=== PATIENT | female | born 1980 | race Caucasian/White ===

== ENCOUNTER 2020-08-15 12:22 | Emergency (ER) | payer BC ==
--- NOTE | 2020-08-15 13:26 | EDM.PDOC ---
ED HPI GENERAL MEDICAL PROBLEM - General Chief Complaint: Chest Pain Stated Complaint: HEADACHE/CHEST AND SHOULDER PAIN Time Seen by Provider: 08/15/20 12:32 Source of Information: Reports: Patient, RN Notes Reviewed History Limitations: Reports: No Limitations - History of Present Illness INITIAL COMMENTS - FREE TEXT/NARRATIVE: Patient is a 39-year-old female presenting to the emergency department with complaints of intermittent right upper chest pain radiating into her right shoulder with associated shortness of breath. Patient states that she had Covid in April and since that time she is had this pain intermittently, however it has now been present since Thursday and persists. Since Thursday, she has also been having intermittent nausea and vomiting, and headaches. She has a history of "tension migraines "which she states she had even prior to Covid. These headaches are manageable with Excedrin. She continues to have distorted taste and smell as well as fatigue. She denies any significant shortness of breath at rest, however states when the pain comes to her right chest and shoulder she does feel short of breath at that time. She denies any known fever but states she does feel chilled occasionally. She called her primary care provider, QASIM Cheng, and she recommended she come to the ER for evaluation. Right Chest Pain Score (Numeric/FACES): 6 - Related Data Allergies Allergy/AdvReac Type Severity Reaction Status Date / Time No Known Allergies Allergy Verified 08/15/20 12:35 Home Meds: Home Meds Levonorgestrel/Ethin.estradiol [Aviane-28 Tablet] 1 tab PO DAILY 08/15/20 [History] predniSONE [Prednisone] 20 mg PO ASDIRECTED #15 tablet 08/15/20 [Rx] Past Medical History - Past Health History Medical/Surgical History: Denies Medical/Surgical History - Infectious Disease History Infectious Disease History: Reports: Chicken Pox, Novel Coronavirus Social & Family History - Tobacco Use Tobacco Use Status *Q: Never Tobacco User Second Hand Smoke Exposure: No - Caffeine Use Caffeine Use: Reports: Coffee - Recreational Drug Use Recreational Drug Use: Yes Recreational Drug Type: Reports: Marijuana/Hashish ED ROS GENERAL - Review of Systems Review Of Systems: See Below Constitutional: Reports: Chills, Fatigue. Denies: Fever HEENT: Reports: Other (parasomnia) Respiratory: Reports: Shortness of Breath (intermittent). Denies: Cough Cardiovascular: Reports: Chest Pain. Denies: Dyspnea on Exertion, Lightheadedness Endocrine: Reports: No Symptoms GI/Abdominal: Reports: Nausea, Vomiting : Reports: No Symptoms Musculoskeletal: Reports: No Symptoms Skin: Reports: No Symptoms Neurological: Reports: Headache. Denies: Confusion, Dizziness Psychiatric: Reports: No Symptoms Hematologic/Lymphatic: Reports: No Symptoms Immunologic: Reports: No Symptoms ED EXAM, GENERAL - Physical Exam Exam: See Below Exam Limited By: No Limitations General Appearance: Alert, WD/WN, No Apparent Distress Respiratory/Chest: No Respiratory Distress, Lungs Clear, Normal Breath Sounds, No Accessory Muscle Use, Other (Tenderness to palpation of the right upper chest wall.) Cardiovascular: Normal Peripheral Pulses, Regular Rate, Rhythm, No Edema, No Gallop, No JVD, No Murmur, No Rub GI/Abdominal: Normal Bowel Sounds, Soft, Non-Tender, No Organomegaly, No Distention, No Abnormal Bruit, No Mass Neurological: Alert, Oriented, CN II-XII Intact, Normal Cognition, Normal Gait, Normal Reflexes, No Motor/Sensory Deficits Psychiatric: Normal Affect, Normal Mood Skin Exam: Warm, Dry, Intact, Normal Color, No Rash #1 Interpretation EKG Date: 08/15/20 Time: 12:29 Rhythm: NSR Rate (Beats/Min): 73 [place]: Normal P-Wave: Present QRS: Normal ST-T: Normal QT: Normal Course - Vital Signs Last Recorded V/S: Last Vital Signs Temp 97.2 F 08/15/20 12:28 Pulse 73 08/15/20 12:28 Resp 18 08/15/20 12:28 BP 146/99 H 08/15/20 12:28 Pulse Ox 100 08/15/20 12:28 - Orders/Labs/Meds Labs: Laboratory Tests 08/15/20 08/15/20 08/15/20 Range/Units 12:40 12:40 13:00 WBC 10.82 H (3.98-10.04) K/mm3 RBC 4.71 (3.98-5.22) M/mm3 Hgb 13.7 (11.2-15.7) gm/dl Hct 41.2 (34.1-44.9) % MCV 87.5 (79.4-94.8) fl MCH 29.1 (25.6-32.2) pg MCHC 33.3 (32.2-35.5) g/dl RDW Std Deviation 42.4 (36.4-46.3) fL Plt Count 319 (182-369) K/mm3 MPV 10.9 (9.4-12.3) fl Neut % (Auto) 73.1 H (34.0-71.1) % Lymph % (Auto) 21.2 (19.3-51.7) % [place] % (Auto) 4.3 L (4.7-12.5) % Eos % (Auto) 1.0 (0.7-5.8) Baso % (Auto) 0.2 (0.1-1.2) % Neut # (Auto) 7.91 H (1.56-6.13) K/mm3 Lymph # (Auto) 2.29 (1.18-3.74) K/mm3 [place] # (Auto) 0.47 H (0.24-0.36) K/mm3 Eos # (Auto) 0.11 (0.04-0.36) K/mm3 Baso # (Auto) 0.02 (0.01-0.08) K/mm3 D-Dimer, Quantitative 0.37 (0.19-0.50) mg/L Sodium 141 (136-145) mEq/L Potassium 3.6 (3.5-5.1) mEq/L Chloride 105 (98-107) mEq/L Carbon Dioxide 22 (21-32) mEq/L Anion Gap 17.6 H (5-15) BUN 15 (7-18) mg/dL Creatinine 0.8 (0.55-1.02) mg/dL Est Cr Clr Drug Dosing 79.91 mL/min Estimated GFR (MDRD) > 60 (>60) mL/min BUN/Creatinine Ratio 18.8 H (14-18) Glucose 106 (74-106) mg/dL Calcium 8.9 (8.5-10.1) mg/dL Total Bilirubin 0.3 (0.2-1.0) mg/dL AST 16 (15-37) U/L ALT 20 (14-59) U/L Alkaline Phosphatase 68 (46-116) U/L Troponin I < 0.017 (0.00-0.056) ng/mL C-Reactive Protein 1.6 H* (<1.0) mg/dL Total Protein 7.7 (6.4-8.2) g/dl Albumin 3.9 (3.4-5.0) g/dl Globulin 3.8 gm/dL Albumin/Globulin Ratio 1.0 (1-2) - Re-Assessments/Exams Free Text/Narrative Re-Assessment/Exam: 08/15/20 14:10 Hematology was grossly unremarkable with the exception of CRP minimally elevated at 1.6 and WBCs minimally elevated at 10.2. D-dimer and troponin are negative. Chest x-ray shows no acute abnormalities. EKG has normal sinus rhythm with no acute abnormalities. Discussed with patient that the cause of her intermittent chest pain is likely musculoskeletal in nature. We will start her on a tapering course of prednisone and recommend follow-up with her primary care provider. Discharge instructions as documented. Departure - Departure Time of Disposition: 14:11 Disposition: Home, Self-Care 01 Condition: Good Clinical Impression: Atypical chest pain Prescriptions: predniSONE [Prednisone] 20 mg PO ASDIRECTED #15 tablet Instructions: Chest Wall Pain, [id number] Referrals: Marcela Escalante PA-C [Primary Care Provider] - Forms: ED Department Discharge Additional Instructions: You were seen in the emergency department today for intermittent right-sided chest pain. Work-up included blood work, EKG of your heart, and a chest x-ray. Results of your work-up were found to be normal. The pain is not coming from your heart and you do not have a blood clot in your lungs. As we discussed, your pain is likely musculoskeletal in nature related to inflammation within your chest wall or muscle spasms. You been started on a course of prednisone which is a steroid to reduce inflammation. Take this medication as prescribed. You may continue to use Tylenol or ibuprofen as needed for headache. Recommend follow-up with your primary care provider at her next available visit. Return to ER as needed. Sepsis Event Note (ED) - Evaluation Sepsis Screening Result: No Definite Risk
--- NOTE | 2020-08-15 13:35 | CR ---
Chest: 2 views of the chest were obtained. Comparison: No previous chest imaging is available. Heart size and mediastinum are normal. Lungs are clear with no acute parenchymal change. Bony structures appear within normal limits for the patient's age. Impression: 1. Nothing acute is seen on 2 view chest x-ray. Diagnostic code #1
== END 2020-08-15 14:35 | disposition home or self-care (01) ==
LOC: JD.ED 12:22
DX: R07.89 Other chest pain (principal)
CPT/HCPCS: 36415; 71046; 71046-26; 80053; 84484; 85025; 85379; 86140; 93005; 93010; 99284; 99285-25